=== PATIENT | male | born 1965 | race Asian ===

== ENCOUNTER 2018-03-11 16:10 | Emergency (ER) | payer SELFPAY ==
[~2018-03-11] VITALS: Ht 162.6 cm; Wt 63.5 kg
[2018-03-11] MEDS ORDERED: HYDROCODONE/ACETAMINOPHEN 5/325MG TABLET PO ONE (17:00)
[2018-03-12] MEDS ORDERED: OXYCODONE HCL/ACETAMINOPHEN 5/325MG TABLET PO ONE (00:45)
[2018-03-12] MEDS ORDERED: CEPHALEXIN 500MG CAPSULE PO ONE (04:15)
[2018-03-12] MEDS ORDERED: LIDOCAINE HCL/PF 1% 10 MG/ML 5ML VIAL IJ ONE (07:15)
[2018-03-12] MEDS ORDERED: BACITRACIN ZINC OINT UDPKT TOP ONE (07:15)
[2018-03-12 07:49] VITALS: BP 154/97
== END 2018-03-12 08:36 | disposition home or self-care (01) ==
LOC: ER 17:17
DX: S62.634B Displaced fracture of distal phalanx of right ring finger, initial encounter for open fracture (principal); I10 Essential (primary) hypertension; E78.00 Pure hypercholesterolemia, unspecified; Y08.89XA Assault by other specified means, initial encounter; Y93.89 Activity, other specified; Y92.89 Other specified places as the place of occurrence of the external cause; Y99.8 Other external cause status
CPT/HCPCS: 12001; 73140; 99284; Z7610